=== PATIENT | female | born 1995 | race Caucasian/White ===

== ENCOUNTER 2016-11-09 05:35 | Inpatient (IN) | payer MEDICAID ==
[2016-11-09] MEDS ORDERED: ONDANSETRON HCL 4 MG/2 ML VIAL IV PRN (06:06)
[2016-11-09] MEDS ORDERED: FENTANYL 100 MCG/2 ML VIAL IV PRN (06:06)
[2016-11-09] MEDS ORDERED: LIDOCAINE HCL/PF 1% 30 ML VIAL SUBCUT PRN (06:06)
[2016-11-09] MEDS ORDERED: HOME MEDICATION LIST NEEDED 1 EA EACH MISC ONE (06:06)
[2016-11-09] MEDS ORDERED: FENTANYL 100 MCG/2 ML VIAL IV ONE (06:06)
[2016-11-09] MEDS ORDERED: MISOPROSTOL 200 MCG TABLET PO PRN ×2 (06:06)
[2016-11-09 06:14] LABS: BASOPHIL# 0.1 X 10^3uL (0.0-0.1); BASOPHILS 0.4 % (0.0-2.0); EOSINOPHILS 1.2 % (0.0-6.0); EOSINOPHILS# 0.2 X 10^3uL (0.0-0.4); HEMATOCRIT 43.3 % (36.0-48.0); HEMOGLOBIN 15.1 g/dL (12.0-16.0); LYMPHOCYTES 18.7 % (20.0-40.0); LYMPHOCYTES# 2.5 X 10^3uL (0.8-3.8); MEAN CELL VOLUME 86.2 fL (80.0-100.0); MEAN CORPUS. HGB CONCENTRATION 34.8 g/dL (32.0-36.0); MEAN PLATELET VOLUME 9.1 fL (7.4-10.4); MONOCYTES 6.4 % (2.0-10.0); MONOCYTES# 0.8 X 10^3uL (0.2-1.0); NEUTROPHILS 73.3 % (54.0-75.0); NEUTROPHILS# 9.6 X 10^3uL (2.6-6.7); PLATELET COUNT 234 X 10^3uL (130-440); RED BLOOD COUNT 5.02 X 10^6uL (4.20-6.10); RED CELL DISTRIBUTION WIDTH 14.9 % (11.5-14.5); WHITE BLOOD COUNT 13.2 X 10^3uL (3.9-10.7)
[2016-11-09] MEDS ORDERED: FENTANYL 100 MCG/2 ML VIAL ONE ×2 (06:51→07:48)
[2016-11-09] MEDS ORDERED: ROPIVACAINE HCL 0.2% 100 ML ONE (06:51)
[2016-11-09] MEDS: OXYTOCIN/NORMAL SALINE 30 UNIT/500 ML BAG IV SCH ×2 (07:15→09:20)
[2016-11-09 07:38] LABS: ANTIBODY SCREEN NEGATIVE
--- NOTE | 2016-11-09 07:42 | PROGRESS NOTE:Antepartum ---
Assessment and Plan - Date of Encounter Date of Encounter: 11/09/16 (1) Born by normal vaginal delivery Status: Acute Current Visit: Yes (2) Single live Status: Acute Current Visit: Yes (3) Retained placenta after delivery without hemorrhage but with other complication Status: Acute Current Visit: Yes (4) 39 weeks gestation of Status: Acute Current Visit: Yes (5) Multigravida in third trimester Problem details: Patient is a 21 yo at 39w4d EGA admitted in active labor with SROM. AFM. Variable decelerations, meconium stained fluid per RN. Uncomplicated course. Status: Acute Current Visit: Yes - Time Spent With Patient Total time spent with greater than 50% in coordination of care (as documented) at patient's floor/unit and/or counseling patient: FABRIC STRETCHER: Antepartum PN Subj - Subjective Patient reports: appetite normal, voiding normally, pain well controlled, ambulating normally Antepartum ROS: contractions, movement normal, abdominal pain (Regular uc , no vb, +SROM. AFM. Reports an uncomplicated course.) FABRIC STRETCHER: Antepartum PN Obj Exam - Exam Heart Monitor: category II Heart Monitor comment: variable decelerations, moderate variability Heart Rhythm: Present: regular Extremities: Present: normal Abdomen: Present: normal appearance, soft Cervical Dilatation Degree: 8 (per RN) Cervical Effacement Percentage: 70 (per RN) Station: -2 - Lab Labs: Laboratory Last Values WBC 13.2 X 10^3uL (3.9-10.7) H 11/09/16 06:06 RBC 5.02 X 10^6uL (4.20-6.10) 11/09/16 06:06 Hgb 15.1 g/dL (12.0-16.0) 11/09/16 06:06 Hct 43.3 % (36.0-48.0) 11/09/16 06:06 MCV 86.2 fL (80.0-100.0) 11/09/16 06:06 MCH 30.0 pg (29.0-35.0) 11/09/16 06:06 MCHC 34.8 g/dL (32.0-36.0) 11/09/16 06:06 RDW 14.9 % (11.5-14.5) H 11/09/16 06:06 Plt Count 234 X 10^3uL (130-440) 11/09/16 06:06 MPV 9.1 fL (7.4-10.4) 11/09/16 06:06 Neutrophils % 73.3 % (54.0-75.0) 11/09/16 06:06 Lymphocytes % 18.7 % (20.0-40.0) L 11/09/16 06:06 Eosinophils % 1.2 % (0.0-6.0) 11/09/16 06:06 Basophils % 0.4 % (0.0-2.0) 11/09/16 06:06 Neutrophils # 9.6 X 10^3uL (2.6-6.7) H 11/09/16 06:06 Lymphocytes # 2.5 X 10^3uL (0.8-3.8) 11/09/16 06:06 Monocytes 6.4 % (2.0-10.0) 11/09/16 06:06 Monocytes # 0.8 X 10^3uL (0.2-1.0) 11/09/16 06:06 Eosinophils # 0.2 X 10^3uL (0.0-0.4) 11/09/16 06:06 Basophils # 0.1 X 10^3uL (0.0-0.1) 11/09/16 06:06
[2016-11-09] MEDS: LACTATED RINGERS 1,000 ML IV SCH ×2 (08:00→18:00)
[2016-11-09] MEDS ORDERED: LACTATED RINGERS 1,000 ML IV SCH ×2 (08:00→09:00)
--- NOTE | 2016-11-09 08:02 | PROCEDURE NOTE: Vaginal Del ---
OB Procedure Vaginal Delivery - Vaginal Delivery Estimated Gestational Age (weeks): 39 (39+4) Delivery Presentation: vertex Delivery Position: OA Heart Monitor: category II Heart Monitor comment: Variable, late decelerations Intrapartum Events: meconium, recurrant variable decelerations, non-recurrent late decelerations Delivery Induction: none Amniotic Fluid: meconium, SROM Delivery Monitor: external FHT Delivery Method: Placenta delivered: yes (retained placenta requiring manual extraction) Delivery Placenta: manual, adherent Delivery Cord: 3 Vessels Nuchal Cord # of Loops: 1 Cord clamped: Yes Cord blood obtained: Yes Episiotomy: none Delivery Laceration: none Infant Gender: Female Estimate Blood Loss Delivery: 300cc Anesthesia: Epidural Patient tolerated procedure: well Delivery Complications: Present: retained placenta (removed with manual extraction) Additional comments: At 0711, a viable female infant delivered via . Head OA, right shoulder anterior, corpus delivered spontaneously. Single nuchal cord was reduced manually after head delivery. Cord clamped and cut after allowing for cord pulsations to stop. Placenta did not deliver spointaneously. Nursing staff had started pitocin prior to placenta delivery. I asked for pitocin stopped, had anesthesia provider bolus the epidural, and performed manual extraction. On exam and on inspection of placenta it appears to be removed in its entirety. I discussed with the patient to monitor for signs of retained placenta. Fundus firm to massage. Mother and infant stable in delivery room.
[2016-11-09] MEDS ORDERED: DIPHENHYDRAMINE 25 MG CAPSULE PO PRN (08:03)
[2016-11-09] MEDS ORDERED: WITCH HAZEL 1 EACH MED..PAD TP PRN (08:03)
[2016-11-09] MEDS ORDERED: MAGNESIUM HYDROXIDE 30 ML UDC PO PRN (08:03)
[2016-11-09] MEDS ORDERED: OXYTOCIN/NORMAL SALINE 500 ML IV ONE (09:39)
[2016-11-09] MEDS: IBUPROFEN 600 MG TABLET PO PRN (12:00)
[2016-11-09] MEDS: DOCUSATE SODIUM 100 MG CAPSULE PO SCH ×2 (15:41→20:27)
[2016-11-09] MEDS: hydroCODone/IBUPR 7.5/200 MG 1 TAB TABLET PO PRN ×2 (15:44→20:27)
[2016-11-10] MEDS: hydroCODone/IBUPR 7.5/200 MG 1 TAB TABLET PO PRN ×3 (00:15→09:39)
[2016-11-10 07:23] LABS: BASOPHILS 0.1 % (0.0-2.0); EOSINOPHILS 1.3 % (0.0-6.0); EOSINOPHILS# 0.2 X 10^3uL (0.0-0.4); HEMATOCRIT 40.1 % (36.0-48.0); HEMOGLOBIN 13.8 g/dL (12.0-16.0); LYMPHOCYTES 15.9 % (20.0-40.0); LYMPHOCYTES# 1.9 X 10^3uL (0.8-3.8); MEAN CELL VOLUME 85.9 fL (80.0-100.0); MEAN CORPUS. HGB CONCENTRATION 34.4 g/dL (32.0-36.0); MEAN CORPUSCULAR HEMOGLOBIN 29.6 pg (29.0-35.0); MONOCYTES 5.1 % (2.0-10.0); MONOCYTES# 0.6 X 10^3uL (0.2-1.0); NEUTROPHILS 77.6 % (54.0-75.0); NEUTROPHILS# 9.1 X 10^3uL (2.6-6.7); RED BLOOD COUNT 4.66 X 10^6uL (4.20-6.10); RED CELL DISTRIBUTION WIDTH 14.8 % (11.5-14.5); WHITE BLOOD COUNT 11.8 X 10^3uL (3.9-10.7)
--- NOTE | 2016-11-10 07:57 | PROGRESS NOTE:Vaginal Delivery ---
Assessment and Plan - Date of Encounter Date of Encounter: 11/10/16 (1) Born by normal vaginal delivery Problem details: Patient is PPD#1 s/p complicated by retained placenta and needing manual extraction. Flagyl ordered for today (allergic to PCN). She is on bedrest with Plaza in place due to dura injury on spinal placement per anesthesia. Anesthesia to evaluate today. When cleared by anesthesia, can remove Plaza, ambulate, heplock IV. - continue care. Status: Acute Current Visit: Yes (2) Single live Status: Acute Current Visit: Yes (3) Retained placenta after delivery without hemorrhage but with other complication Status: Acute Current Visit: Yes (4) 39 weeks gestation of Status: Acute Current Visit: Yes (5) Multigravida in third trimester Problem details: Patient is a 21 yo at 39w4d EGA admitted in active labor with SROM. AFM. Variable decelerations, meconium stained fluid per RN. Uncomplicated course. Status: Acute Current Visit: Yes - Time Spent With Patient Total time spent with greater than 50% in coordination of care (as documented) at patient's floor/unit and/or counseling patient: less than 15 minutes Estimated anticipated discharge: 11/11/16 CANE PILER: Vag Del PN Subjective Interval history: Feels well. Has been on bedrest per anesthesia due to risk of spinal dural puncture. She does have a headache, though she has been lying flat and it is uncertain whether this is a spinal headache. Minimal lochia. Good pain control. Post- Day: 1 Patient reports: appetite normal, voiding normally, pain well controlled, ambulating normally [place]: doing well, nursing well CANE PILER: Vag Del PN Obj Exam - Latest Vital Signs and I&O Latest Vital Signs/I&O: Vital Signs Temp 36.5 C 11/10/16 00:00 Pulse 77 11/10/16 00:00 Resp 18 11/10/16 00:00 BP 112/90 11/10/16 00:00 Pulse Ox 90 11/09/16 16:06 Intake & Output 11/09/16 11/10/16 11/10/16 17:59 05:59 17:59 Intake Total 1500 3620 Output Total 1400 1550 Balance 100 2070 Weight 99.79 kg Intake: IV 1500 3620 Lr 1000 ml Bag 1,000 ml @ 1000 125 mls/hr IV CONT RAY Rx#:[id number] Right Hand 1500 2620 Output: Urine 1400 1550 Other: Urine Appearance Clear Clear Urine Color Yellow Yellow Uretheral (Plaza) Pale Pale Yellow Yellow Voiding Method Indwelling Catheter Indwelling Catheter - Exam Heart Rhythm: Present: regular Extremities: Present: normal Abdomen: Present: normal appearance, soft. Absent: rigidity, aortic enlargement , mass, hernia, distention, organomegaly, inguinal adenopathy, tenderness, bruits, other Uterus: Present: normal, firm, non tender - Lab Labs: Laboratory Last Values WBC 11.8 X 10^3uL (3.9-10.7) H 11/10/16 06:50 RBC 4.66 X 10^6uL (4.20-6.10) 11/10/16 06:50 Hgb 13.8 g/dL (12.0-16.0) 11/10/16 06:50 Hct 40.1 % (36.0-48.0) 11/10/16 06:50 MCV 85.9 fL (80.0-100.0) 11/10/16 06:50 MCH 29.6 pg (29.0-35.0) 11/10/16 06:50 MCHC 34.4 g/dL (32.0-36.0) 11/10/16 06:50 RDW 14.8 % (11.5-14.5) H 11/10/16 06:50 Plt Count 191 X 10^3uL (130-440) 11/10/16 06:50 MPV 9.0 fL (7.4-10.4) 11/10/16 06:50 Neutrophils % 77.6 % (54.0-75.0) H 11/10/16 06:50 Lymphocytes % 15.9 % (20.0-40.0) L 11/10/16 06:50 Eosinophils % 1.3 % (0.0-6.0) 11/10/16 06:50 Basophils % 0.1 % (0.0-2.0) 11/10/16 06:50 Neutrophils # 9.1 X 10^3uL (2.6-6.7) H 11/10/16 06:50 Lymphocytes # 1.9 X 10^3uL (0.8-3.8) 11/10/16 06:50 Monocytes 5.1 % (2.0-10.0) 11/10/16 06:50 Monocytes # 0.6 X 10^3uL (0.2-1.0) 11/10/16 06:50 Eosinophils # 0.2 X 10^3uL (0.0-0.4) 11/10/16 06:50 Basophils # 0.0 X 10^3uL (0.0-0.1) 11/10/16 06:50 Antibody Screen Negative 11/09/16 06:06
[2016-11-10] MEDS: DOCUSATE SODIUM 100 MG CAPSULE PO SCH (09:39)
[2016-11-10] MEDS ORDERED: METRONIDAZOLE IV ONE (09:42)
[2016-11-10] MEDS ORDERED: PIGGYBACK IV ONE (09:42)
[2016-11-10] MEDS ORDERED: SOD CL IV ONE (09:42)
[2016-11-10] MEDS: metroNIDAZOLE/SOD CL 500 MG in NORMAL SALINE PREMIX 100 ML 1 BAG IV SCH (10:37)
[2016-11-10 14:34] VITALS: RESP 16
[2016-11-10] MEDS: IBUPROFEN 600 MG TABLET PO PRN (18:42)
[2016-11-11] MEDS: IBUPROFEN 600 MG TABLET PO PRN ×2 (01:01→08:02)
[2016-11-11 01:44] VITALS: O2SAT 92
[2016-11-11] MEDS: DOCUSATE SODIUM 100 MG CAPSULE PO SCH ×2 (04:55→08:02)
[2016-11-11] MEDS: metroNIDAZOLE/SOD CL 500 MG in NORMAL SALINE PREMIX 100 ML 1 BAG IV SCH ×2 (04:55→10:31)
[2016-11-11] MEDS: MEASLES,MUMPS&RUBELLA VACCINE 0.5 ML VIAL SUBCUT ONE ×2 (04:57→08:04)
--- NOTE | 2016-11-11 07:43 | DC SUMMARY: Obstetrical/GYN ---
Discharge Summary: Surg/OB Provider: Date of Admission: 11/09/16 Admitting Provider: MOHINDER FUENTES MD Attending Provider: MOHINDER FUENTES MD Discharging Provider: Betty Kimbrough Primary Care Provider: Discharge Date: 11/11/16 PPD#2 Patient admitted at term in active labor. She underwent an uncomplicated vaginal delivery. On PPD#1 she was treated for a spinal headache with a blood patch and her symptoms resolved. She desires discharge today. She is without difficulty. Her lochia is light and she is voiding as usual. She plans bilateral tubal ligation for control and her follow up appointment has been scheduled. She feels well today and has no complaints. Exam: Patient comfortable and conversed easily. VSS Afebrile. Fundus firm. Extremities negative. Labs reviewed. A/P PPD#2 s/p . Patient stable for discharge. Discharge precautions and follow up reviewed in detail and she demonstrates understanding. She will use ibuprofen she has at home for cramping as needed. All questions answered. - Diagnosis (1) Born by normal vaginal delivery Status: Acute (2) Single live Status: Acute Hospital Course: Ms. CASTRO is a 21 year old female s/p . She had a spinal headache PPD# 1 which resolved with blood patch treatment. She desires discharge today and meets discharge criteria. Home with precautions and follow up. See discharge summary documentation. Discharge Disposition: HOME, SELF-CARE Obstetrical/TREAD BOOKER Discharge Exam - Latest Vital Signs and I&O Latest Vital Signs/I&O: Vital Signs Temp 36.6 C 11/11/16 01:00 Pulse 79 11/11/16 01:00 Resp 16 11/11/16 01:00 BP 127/67 11/11/16 01:00 Pulse Ox 92 11/11/16 01:00 Intake & Output 11/10/16 11/11/16 11/11/16 17:59 05:59 17:59 Output Total 2700 Balance -2700 Output: Urine 2700 Other: Urine Appearance Clear Clear Urine Color Yellow Yellow Uretheral (Plaza) Pale Yellow Voiding Method Toilet Toilet - Exam Heart Rhythm: Present: regular Extremities: Present: normal Abdomen: Present: normal appearance, soft. Absent: rigidity, aortic enlargement , mass, hernia, distention, organomegaly, inguinal adenopathy, tenderness, bruits, other Uterus: Present: normal, firm, non tender Discharge Summary Data - Medication History Medication History: Home Medications Vit/Fe Fumarate/FA [ Rx 1] 1 tab PO DAILY 09/27/15 Inpatient Medications 11/09/16 06:06 Fentanyl [Sublimaze] 25 mcg IV Q10M PRN Lactated Ringers [Lr 1000 ml Bag] 1,000 ml IV CONT Lidocaine HCl/Pf 1% [Xylocaine 1%] 20 ml SUBCUT ONCE PRN Misoprostol [Cytotec] 600 mcg PO ONCE PRN Misoprostol [Cytotec] 800 mcg PO ONCE PRN Ondansetron HCl [Zofran] 4 mg IV Q4H PRN Oxytocin/Normal Saline [Pitocin/Ns 30 Unit/500 ml] 30 unit IV CONT 11/09/16 08:00 Lactated Ringers [Lr 1000 ml Bag] 1,000 ml IV CONT 11/09/16 08:03 Diphenhydramine [Benadryl] 50 mg PO HS PRN Ibuprofen [Motrin] 600 mg PO Q6H PRN Magnesium Hydroxide [Milk of Magnesia] 30 ml PO PRN PRN [place] [Tucks Take-Alongs] 1 each TP PRN PRN hydroCODone/IBUPR 7.5/200 MG [VICOPROFEN 7.5mg/200mg] 1 tab PO Q4H PRN 11/09/16 08:15 Docusate Sodium [Colace] 100 mg PO Q12H 11/09/16 09:00 Lactated Ringers [Lr 1000 ml Bag] 1,000 ml IV CONT 11/10/16 09:00 metroNIDAZOLE/SOD CL [Flagyl 500 mg] 500 mg Normal Saline Premix 100 ml [ Sodium Chloride 0.9% 100 ml [Premix]] 1 bag IV Q8H Procedures and tests throughout hospitalization: Completed Lab Orders 11/09/16 06:06 ANTIBODY SCREEN [HEM] Urgent CBC AUTO DIF, MDIF/RMOR IF IND [HEM] Urgent 11/10/16 06:50 CBC AUTO DIF, MDIF/RMOR IF IND [HEM] AMDRAW Pending Orders 10/22/16 18:03 Resuscitation Status Routine 11/09/16 06:06 Admit: Inpatient Routine VTE Prophylaxis Scoring/ Ordering Routine Activity: Ambulate Fentanyl [Sublimaze] 25 mcg IV Q10M PRN Lactated Ringers [Lr 1000 ml Bag] 1,000 ml IV CONT Lidocaine HCl/Pf 1% [Xylocaine 1%] 20 ml SUBCUT ONCE PRN Misoprostol [Cytotec] 600 mcg PO ONCE PRN Misoprostol [Cytotec] 800 mcg PO ONCE PRN Ondansetron HCl [Zofran] 4 mg IV Q4H PRN Oxytocin/Normal Saline [Pitocin/Ns 30 Unit/500 ml] 30 unit IV CONT 11/09/16 08:00 Lactated Ringers [Lr 1000 ml Bag] 1,000 ml IV CONT 11/09/16 08:03 Admit: Inpatient Routine VTE Prophylaxis Scoring/ Ordering Routine Post Assessment PER PROTOCOL Vital Signs Diphenhydramine [Benadryl] 50 mg PO HS PRN Ibuprofen [Motrin] 600 mg PO Q6H PRN Magnesium Hydroxide [Milk of Magnesia] 30 ml PO PRN PRN [place] [Tucks Take-Alongs] 1 each TP PRN PRN hydroCODone/IBUPR 7.5/200 MG [VICOPROFEN 7.5mg/200mg] 1 tab PO Q4H PRN 11/09/16 08:15 Docusate Sodium [Colace] 100 mg PO Q12H 11/09/16 09:00 Lactated Ringers [Lr 1000 ml Bag] 1,000 ml IV CONT 11/09/16 Breakfast Regular [DIET] 11/10/16 06:50 SCREEN [SEND] AMDRAW 11/10/16 09:00 metroNIDAZOLE/SOD CL [Flagyl 500 mg] 500 mg Normal Saline Premix 100 ml [ Sodium Chloride 0.9% 100 ml [Premix]] 1 bag IV Q8H 11/10/16 Lunch Special Meal (NLC)
[2016-11-11 07:59] VITALS: BP 106/50; PULSE 74; TEMP 97.5
[2016-11-11] MEDS ORDERED: RHO(D) IMMUNE GLOBULIN 1,500 UNIT DISP.SYRIN IM ONE (08:00)
[2016-11-11] MEDS ORDERED: MEASLES,MUMPS&RUBELLA VACCINE 0.5 ML VIAL SUBCUT ONE (08:02)
== END 2016-11-11 10:20 | disposition home or self-care (01) | DRG 767 ==
LOC: NLCPRO 05:35 → NLC 05:41
PROVIDERS: ADMIT Obstetrics & Gynecology; ATTEND Obstetrics & Gynecology
PROC: 10E0XZZ Delivery of Products of Conception, External Approach (ICD-10-PCS; principal; 2016-11-09)
PROC: 10D17ZZ Extraction of Products of Conception, Retained, Via Natural or Artificial Opening (ICD-10-PCS; principal; 2016-11-09)
DX: O76 Abnormality in fetal heart rate and rhythm complicating labor and delivery (principal); O77.0 Labor and delivery complicated by meconium in amniotic fluid; Z3A.39 39 weeks gestation of pregnancy; Z37.0 Single live birth
CPT/HCPCS: 36415; 62273; 85025; 85461; 86850; J2790; J2795; J3010; J7120

== ENCOUNTER 2016-11-12 19:36 | Emergency (ER) | payer MEDICAID ==
[2016-11-12] MEDS ORDERED: FENTANYL 100 MCG/2 ML VIAL ONE (20:59)
[2016-11-12] MEDS ORDERED: MIDAZOLAM HCL 2 MG/2 ML VIAL ONE (21:00)
--- NOTE | 2016-11-12 23:10 | ER NURSING DOCUMENTATION ---
Nurse's Notes [facility] Name:Ruby Arita Age:21 yrs Sex:Female :1995 Arrival Date:11/12/2016 Time:19:36 Bed5 Private MD: Diagnosis:Post Spinal Headache Presentation: 11/12 19:40 Acuity: MARQUIS 3 rh 19:44 Presenting complaint: Patient states: had epidural on 11/09 with childbirth. c/o headache lb since then, had bloodpatch yesterday, feels worse today. Transition of care: Home. Notified ED Physician of Dr. Lopes notified. Care prior to arrival: Medication(s) given: Tylenol. 19:44 Method Of Arrival: Walk In lb Triage Assessment: 19:46 General: Appears uncomfortable, Behavior is appropriate for age. Pain: Complains of lb pain in face Pain does not radiate. Pain currently is 6 out of 10 on a pain scale. Neuro: Level of Consciousness is awake, alert, Oriented to person, place, time, event, Civil Design Technician are equal bilaterally Moves all extremities. Musculoskeletal: Circulation, motion, and sensation intact Capillary refill < 3 seconds Range of motion intact in all extremities. Historical: - Allergies: Amoxicillin; - Home Meds: 1. pre yassine - PMHx: None; - PSHx: Knee surgery; - Tetanus: < 10 years. - Ebola Screening: : Patient denies exposure to infectious person. Patient denies travel to an Ebola-affected area in the 21 days before illness onset. . - Immunization history: Flu Vaccine < 1 year. - Social history: Smoking status: Patient uses tobacco products, current some day smoker. Patient/guardian denies using alcohol. - Code Status:: Full code. Screenin:48 Infectious Disease Risk None. Abuse screen: Denies threats or abuse. Denies injuries lb from another. Nutritional screening: No deficits noted. Assessment: 19:48 See Triage Assessment done by same RN. Neuro: Level of Consciousness is awake, alert, lb Oriented to person, place, time, event, Civil Design Technician are equal bilaterally Moves all extremities. Speech is normal, Facial symmetry appears normal. 19:48 EENT: No deficits noted. Cardiovascular: No deficits noted. Respiratory: No deficits lb noted. Vital Signs: 19:47 BP 128 / 71; Pulse 71; Resp 18; Temp 98.2(TE); Pulse Ox 95% on R/A; Pain 6/10; lb 21:29 BP 125 / 88 (auto/); sc1 21:31 Pulse Ox 90% ; sc1 21:58 BP 112 / 63; Pulse 79; Resp 18; Pulse Ox 95% on 2 lpm NC; Pain 0/10; lb 23:09 BP 142 / 74; Pulse 69; Resp 18; Pulse Ox 94% on R/A; Pain 0/10; lb ED Course: 19:40 Patient arrived in ED. jl 19:40 Triage completed. 19:43 Shankar Lopes MD is Attending Physician. wi 19:44 Briseida Christopher is Primary Nurse. lb 19:48 Valuables Remains with patient Patient has correct armband on for positive lb identification. Bed in low position. 20:19 Inserted peripheral IV: 20 gauge in right antecubital area. lb 21:33 Assist Provider blood patch. sc1 Administered Medications: 20:19 Drug: NS 0.9% 1000 ml; Route: IV; Rate: bolus; Site: right antecubital; lb 23:08 Follow up: IV Status: Completed infusion; IV Intake: 1000ml lb Intake: 23:08 IV: 1000ml (NS); Total: 1000ml. lb 23:08 IV: 1000ml; Total: 2000ml. lb Outcome: 20:46 Discharge ordered by . wi 23:09 Discharged to home ambulatory. lb 23:09 Condition: good 23:09 Discharge Assessment: Patient awake, alert and oriented x 3. No cognitive and/or functional deficits noted. Patient verbalized understanding of disposition instructions. 23:09 Instructed on discharge instructions, follow up and referral plans. 23:09 IV D/Fabricio 23:10 Patient left the ED. lb 07/06 11:55 Discharge F/U Call: Unable to reach: non-working number Signatures: Johanna Hua, RN RN wi1 Shankar Lopes MD MD sc Hofsess, Rachel Briseida Christopher Ashvin Escalona
--- NOTE | 2016-11-12 23:10 | ER PHYSICIAN DOCUMENTATION ---
Physician Documentation [facility] Name:Ruby Arita Age:21 yrs Sex:Female :1995 Arrival Date:11/12/2016 Time:19:36 Bed5 Private MD: Shankar Montilla Disposition: 11/12/16 20:46 Discharged to Home/Self Care. Impression: Post Spinal Headache. - Condition is Good. - Discharge Instructions: Blood Patchs, Epidural - HEADACHE After Spinal Tap (with Patch). - Medical Reconciliation form form. - Follow up: Private Physician; When: As needed; Reason: Worsening of condition. - Problem is new. - Symptoms have improved. HPI: 11/12 20:40 This 21 yrs old Female presents to ER via Walk In with complaints of Back sc Pain - BLOOD PATCH. 20:40 The patient presents with pain that is acute, recent epidural for childbirth now sc recurrent spinal headache. Onset: The symptoms/episode began/occurred today. The pain does not radiate. Associated signs and symptoms: The patient has no apparent associated signs or symptoms. Modifying factors: The patient symptoms are alleviated by OTC meds. Historical: - Allergies: Amoxicillin; - Home Meds: 1. pre yassine - PMHx: None; - PSHx: Knee surgery; - Tetanus: < 10 years. - Ebola Screening: : Patient denies exposure to infectious person. Patient denies travel to an Ebola-affected area in the 21 days before illness onset. . - Immunization history: Flu Vaccine < 1 year. - Social history: Smoking status: Patient uses tobacco products, current some day smoker. Patient/guardian denies using alcohol. - Code Status:: Full code. ROS: 20:41 Constitutional: Negative for fever, chills, and weight loss. sc Eyes: Negative for injury, pain, redness, and discharge. ENT: Negative for injury, pain, and discharge. Neck: Negative for injury, pain, and swelling. Cardiovascular: Negative for chest pain, palpitations, and edema. Respiratory: Negative for shortness of breath, cough, wheezing, and pleuritic chest pain. Abdomen/GI: Negative for abdominal pain, nausea, vomiting, diarrhea, and constipation. 20:41 Skin: Negative for injury, rash, and discoloration. sc 20:41 Back: Negative for pain at rest, pain with movement, radiated pain. 20:41 Neuro: Positive for headache. Exam: Constitutional: This is a well developed, well nourished patient who is awake, alert, and in no acute distress. Head/Face: Normocephalic, atraumatic. Eyes: Pupils equal round and reactive to light, extra-ocular motions intact. Lids and lashes normal. Conjunctiva and sclera are non-icteric and not injected. Cornea within normal limits. Periorbital areas with no swelling, redness, or edema. ENT: Nares patent. No nasal discharge, no septal abnormalities noted. Tympanic membranes are normal and external auditory canals are clear. Oropharynx with no redness, swelling, or masses, exudates, or evidence of obstruction, uvula midline. Mucous membranes moist. Neck: Trachea midline, no thyromegaly or masses palpated, and no cervical lymphadenopathy. Supple, full range of motion without nuchal rigidity, or vertebral point tenderness. No meningismus. Cardiovascular: Regular rate and rhythm with a normal S1 and S2. No gallops, murmurs, or rubs. Normal PMI, no JVD. No pulse deficits. 20:41 Respiratory: Lungs have equal breath sounds bilaterally, clear to auscultation and sc percussion. No rales, rhonchi or wheezes noted. No increased work of breathing, no retractions or nasal flaring. 20:41 Back: pain, is absent, ROM is normal. 20:41 Neuro: Orientation: is normal, Sensation: is normal, no obvious gross deficits, Gait: is steady, Deep tendon reflexes are 2+ (normal) in the right patellar, right Achilles, left patellar and left Achilles. Vital Signs: 19:47 BP 128 / 71; Pulse 71; Resp 18; Temp 98.2(TE); Pulse Ox 95% on R/A; Pain 6/10; lb 21:29 BP 125 / 88 (auto/); sc1 21:31 Pulse Ox 90% ; sc1 21:58 BP 112 / 63; Pulse 79; Resp 18; Pulse Ox 95% on 2 lpm NC; Pain 0/10; lb 23:09 BP 142 / 74; Pulse 69; Resp 18; Pulse Ox 94% on R/A; Pain 0/10; lb MDM: 19:43 Patient medically screened. mi 20:08 Physician consultation: Delphine Quevedo was called at 20:08, was contacted at 20:08, mi regarding need to come to ED to see patient, and will see patient immediately. 20:43 Differential diagnosis: Epidural or Perispinal Abcess Epidural or Perispinal Bleed sc spinal LAMA. Data reviewed: vital signs, nurses notes, and as a result, I will continue to observe the patient. Counseling: I had a detailed discussion with the patient and/or guardian regarding: the historical points, exam findings, and any diagnostic results supporting the discharge/admit diagnosis, the need for outpatient follow up, for a referral to a specialist, to return to the emergency department if symptoms worsen or persist or if there are any questions or concerns that arise at home. 11/12 20:01 Order name: Iv Saline Lock; Complete Time: :19 sc Dispensed Medications: :19 Drug: NS 0.9% 1000 ml; Route: IV; Rate: bolus; Site: right antecubital; lb 23:08 Follow up: IV Status: Completed infusion; IV Intake: 1000ml lb Signatures: Shankar Lopes MD MD mi Briseida Christopher
== END 2016-11-12 23:10 | disposition home or self-care (01) ==
LOC: ER 19:36
DX: G97.1 Other reaction to spinal and lumbar puncture (principal); O99.89 Other specified diseases and conditions complicating pregnancy, childbirth and the puerperium
CPT/HCPCS: 96360; 96361; 99283; J2250; J3010